=== PATIENT | male | born 1950 | race Caucasian/White ===

== ENCOUNTER 2020-05-09 23:39 | Emergency (ER) | payer MEDICARE ==
[~2020-05-09] VITALS: Ht 160 cm; Wt 99.8 kg
[~2020-05-09 23:39] MED LIST: ACTOS 45 MG45 M1 PO; ADULT LOW DOSE81 MG PO; ALBUTEROL INH; AMOXICILLIN 50500 MG PO; AMOXICILLIN500 M1 PO; ASCORBIC ACID500 M1 PO; BACTRIM DS TAB1 EACH PO; CINNAMON; CLEOCIN HCL150 MG PO; COUMADIN 5 MG TA5 M1 PO; ENOXAPARIN150 MG/1 M SQ; FLEXERIL PO; GLUCOPHAGE1000 MG PO; GLUCOTROL10 MG PO; GLUMETZA500 PO; HCTZ; HIGH BLOOD PRESSURE; HYDROCHLOROTHIA25 M1 PO; HYDROCODON-ACE1 EAC7 PO; HYDROCODONE-AP1 EAC6 PO; LEVEMIR SUBQ; LEVOTHROID50 MCG PO; LEVOTHYROXINE 0.1 MG PO; LISINOPRIL40 MG PO; MECLIZINE HCL25 M1 PO; METFORMIN; MEVACOR40 MG PO; NEURONTIN 300300 M1 PO; NORCO 5-325 TA1 EACH PO; NORVASC 5 MG TAB5 MG PO; NOVOLOG100 UNIT/1; PENICILLIN V P500 MG PO; PENICILLIN VK500 M1 PO; PENICILLIN VK500 MG PO; PRINIVIL; ROBAXIN 750 MG750 M1 PO; THEO-24300 MG PO; ULTRAM 50MG TAB50 MG PO; VALIUM5 MG PO; ZANAFLEX4 MG PO; ZOFRAN 4 MG ORAL4 M1 DIS; ZYVOX600 MG PO
[2020-05-10] MEDS ORDERED: CINNAMON500 MG PO (00:11)
[2020-05-10] MEDS ORDERED: PEPCID40 MG PO (00:11)
[2020-05-10] MEDS ORDERED: SINGULAIR 10 MG10 M1 PO (00:12)
[2020-05-10] MEDS ORDERED: BENAZEPRIL HCL40 MG PO (00:12)
[2020-05-10] MEDS ORDERED: JARDIANCE25 MG PO (00:13)
[2020-05-10] MEDS ORDERED: HYDROCHLOROTHIA25 M1 PO (00:13)
[2020-05-10] MEDS ORDERED: NORVASC 2.5 MG2.5 M1 PO (00:13)
[2020-05-10] MEDS ORDERED: LIPITOR40 MG PO (00:14)
[2020-05-10 00:53] LABS: HEMATOCRIT 41.8 % (42.0-52.0); HEMOGLOBIN 14.2 gm/dL (14.0-18.0); MCH 29.6 pg (26.0-34.0); MCHC 33.9 g/dL (28.0-37.0); MCV 87.5 fL (80.0-100.0); MPV 6.3 fl. (7.2-11.1); NUCLEATED RBCS 0 /100WBC; PLATELET COUNT* 391 thou/uL (150-400); RBC 4.78 mil/uL (4.50-6.00); RDW-CV 15.2 % (10.5-14.5); WBC 23.1 thou/uL (4.0-11.0)
[2020-05-10 01:02] LABS: CREATININE 1.4 mg/dL (0.6-1.3); POTASSIUM 4.5 mmol/L (3.5-5.1)
[2020-05-10 01:06] LABS: ALBUMIN 3.1 g/dL (3.4-5.0); TOTAL BILIRUBIN 0.4 mg/dL (<0.1-1.0); TOTAL PROTEIN 7.9 g/dL (6.4-8.2)
[2020-05-10 01:08] LABS: PROTIME 10.3 Seconds (9.20-11.50)
[2020-05-10 02:41] LABS: ABSOLUTE EOSINOPHILS 0.2 thou/uL (0.0-0.7); ABSOLUTE LYMPHOCYTES 2.5 thou/uL (0.8-5.3); ABSOLUTE MONOCYTES 1.8 thou/uL (0.0-1.2); ABSOLUTE NEUTROPHILS 18.5 thou/uL (1.6-8.1); PLATELET ESTIMATE ADEQUATE; TOXIC GRANULATION 1+
[2020-05-10] MEDS ORDERED: TORADOL 10 MG T10 MG PO (04:09)
[2020-05-10] MEDS ORDERED: NORFLEX100 MG PO (04:09)
[2020-05-10 04:38] VITALS: BP 137/70
--- NOTE | 2020-05-10 11:06 | EKG ---
[place] [address] ELECTROCARDIOGRAM REPORT Name: CLINT BETTS Room: [facility]#: [id number] Admission: 05/09/20 Attend Phys: Discharge: 05/10/20 Date of : 54 Date of Service: 05/10/20 0050 Report #: [id number] THIS REPORT FOR: //name// [facility] Test Date: 2020-05-10 Test Time: 00:50:57 Pat Name: CLINT BETTS Department: Room: Gender: [employer] In[employer]: [place] : 1950 Requested By: Lawanda Hunter Order Number: [id number] MD: Shiva Martinez Measurements Intervals Section Rate: 78 P: 44 NC: 138 QRS: -9 QRSD: 89 T: 16 QT: 371 QTc: 423 Interpretive Statements Sinus rhythm Abnormal R-wave progression, late transition Baseline wander in lead(s) III,V4 Compared to ECG 01/09/2012 12:15:01 Poor R-wave progression persists Electronically Signed On 05-10-2020 11:05:57 CDT by Shiva Martinez [email or web address] <ELECTRONICALLY SIGNED> By: Shiva Martinez MD, [facility] 05/10/20 1105 0050 Shiva Martinez MD, [facility] /EPI
== END 2020-05-10 04:39 | disposition home or self-care (01) ==
LOC: M.ERS 23:39
PROVIDERS: Personal Emergency Response Attendant
DX: R07.89 Other chest pain (principal); Z20.828 Contact with and (suspected) exposure to other viral communicable diseases; I10 Essential (primary) hypertension; E11.9 Type 2 diabetes mellitus without complications; E78.00 Pure hypercholesterolemia, unspecified; J45.909 Unspecified asthma, uncomplicated; G62.9 Polyneuropathy, unspecified; Z88.5 Allergy status to narcotic agent; Z88.6 Allergy status to analgesic agent